=== PATIENT | female | born 1955 | race Caucasian/White ===

== ENCOUNTER 2017-07-31 13:22 | Emergency (ER) | payer OTHER ==
[~2017-07-31] VITALS: Ht 152.4 cm; Wt 54.4 kg
[~2017-07-31 13:22] MED LIST: ASPI81CH; Advil200 M1; GABA300 PO; MECL25 PO; MEDICAL MARIJUANA; MORPHINE; Norco 5-325 Ta1 EACH PO; SOMA; Sleep Aid25 M1 PO
[2017-07-31] MEDS ORDERED: ACET325 PO (13:54)
[2017-09-24] MEDS ORDERED: Diclofenac Sodi50 MG PO (19:36)
== END 2017-07-31 15:03 | disposition home or self-care (01) ==
LOC: ER 13:22
DX: S51.812A Laceration without foreign body of left forearm, initial encounter (principal); Z79.899 Other long term (current) drug therapy; Z23 Encounter for immunization; Z90.49 Acquired absence of other specified parts of digestive tract; Z90.710 Acquired absence of both cervix and uterus; Z87.891 Personal history of nicotine dependence; W26.0XXA Contact with knife, initial encounter
CPT/HCPCS: 12002; 90471; 90714; 99283

== ENCOUNTER 2017-08-11 09:30 | Emergency (ER) | payer OTHER ==
[~2017-08-11] VITALS: Ht 152.4 cm; Wt 52.2 kg
[~2017-08-11 09:30] MED LIST changes: +ACET325 PO
[2017-08-11] MEDS ORDERED: ACET325 PO (09:56)
[2017-08-11] MEDS ORDERED: GABA300 PO (09:57)
[2017-09-24] MEDS ORDERED: Diclofenac Sodi50 MG PO (19:36)
== END 2017-08-11 10:06 | disposition home or self-care (01) ==
LOC: ER 09:30
DX: S51.812D Laceration without foreign body of left forearm, subsequent encounter (principal); W26.8XXA Contact with other sharp object(s), not elsewhere classified, initial encounter
CPT/HCPCS: 99281

== ENCOUNTER 2017-09-15 11:39 | Emergency (ER) | payer OTHER ==
[~2017-09-15] VITALS: Ht 152.4 cm; Wt 54.4 kg
[2017-09-15] MEDS ORDERED: Valium5 MG PO (14:45)
[2017-09-15] MEDS ORDERED: Norco 5-325 Ta1 EACH PO (14:45)
[2017-09-24] MEDS ORDERED: Diclofenac Sodi50 MG PO (19:36)
== END 2017-09-15 14:57 | disposition home or self-care (01) ==
LOC: ER 11:39
DX: M54.2 Cervicalgia (principal); Z79.899 Other long term (current) drug therapy; Z87.891 Personal history of nicotine dependence
CPT/HCPCS: 99283

== ENCOUNTER 2017-09-24 19:28 | Emergency (ER) | END 2017-09-24 21:24 | disposition home or self-care (01) ==

== ENCOUNTER 2017-12-23 08:42 | Day surgery (SDC) | payer OTHER ==
[~2017-12-23 08:42] MED LIST changes: +Diclofenac Sodi50 MG PO; +Valium5 MG PO
== END 2017-12-23 22:49 | disposition home or self-care (01) ==
LOC: RAD 08:42
PROVIDERS: Radiology Diagnostic Radiology
PROC: BR20YZZ Computerized Tomography (CT Scan) of Cervical Spine using Other Contrast (ICD-10-PCS; principal; 2017-12-23 11:00)
DX: M48.02 Spinal stenosis, cervical region (principal); M50.322 Other cervical disc degeneration at C5-C6 level; M43.12 Spondylolisthesis, cervical region; R20.9 Unspecified disturbances of skin sensation; Z87.891 Personal history of nicotine dependence; F32.9 Major depressive disorder, single episode, unspecified; F41.9 Anxiety disorder, unspecified
CPT/HCPCS: 62302; 72126; Q9966

== ENCOUNTER 2018-01-28 10:36 | Emergency (ER) | payer OTHER ==
[~2018-01-28] VITALS: Ht 167.6 cm; Wt 54.4 kg
== END 2018-01-28 12:50 | disposition home or self-care (01) ==
LOC: ER 10:36
DX: S81.811A Laceration without foreign body, right lower leg, initial encounter (principal); Z79.899 Other long term (current) drug therapy; Z87.891 Personal history of nicotine dependence; W30.89XA Contact with other specified agricultural machinery, initial encounter; Y93.01 Activity, walking, marching and hiking
CPT/HCPCS: 12002; 73590; 99283

== ENCOUNTER → 2020-06-08 | Outpatient (CLI) | payer OTHER ==
[2020-06-10 09:50] LABS: Stool Occult Blood Guaiac 1 Neg (Neg)
== END ==
LOC: LAB SHORT 21:30 → LAB 21:30
PROVIDERS: Nurse Practitioner Family
DX: R19.4 Change in bowel habit (principal)
CPT/HCPCS: 82272

== ENCOUNTER → 2021-08-24 | Outpatient (CLI) | payer OTHER ==
[~2021-08-24] MED LIST changes: +ACET500 PO; +ALBU90OI INH; +ASPI81CH PO; +Apple Cider Vi300 MG PO; +BENTYL10 MG/1 ML PO; +Cymbalta20 MG PO; +IBUPROFEN IB200 MG PO; +TIZA4 PO; +TURMERIC500 M2 PO; +VITAMIN D310 MC4 PO; +[UNRECOGNIZED DRUG - REMARK] PO
[2021-08-25 07:11] LABS: BASO (ABSOLUTE) 0.1 x10E3/uL (0.0-0.2); BASOS 1 % (Not Estab.); EOS 1 % (Not Estab.); EOS (ABSOLUTE) 0.1 x10E3/uL (0.0-0.4); HEMATOCRIT 38.5 % (34.0-46.6); HEMOGLOBIN 13.4 g/dL (11.1-15.9); IMMATURE GRANULOCYTES 0 % (Not Estab.); LYMPHS 28 % (Not Estab.); LYMPHS (ABSOLUTE) 2.1 x10E3/uL (0.7-3.1); MCH 30.8 pg (26.6-33.0); MCHC 34.8 g/dL (31.5-35.7); MCV 89 fL (79-97); MONOCYTES 6 % (Not Estab.); MONOCYTES(ABSOLUTE) 0.5 x10E3/uL (0.1-0.9); NEUTROPHILS 64 % (Not Estab.); NEUTROPHILS (ABSOLUTE) 4.9 x10E3/uL (1.4-7.0); PLATELETS 372 x10E3/uL (150-450); RBC 4.35 x10E6/uL (3.77-5.28); RDW 11.6 % (11.7-15.4); WBC 7.6 x10E3/uL (3.4-10.8)
[2021-08-25 08:11] LABS: CALCIUM, SERUM 10.1 mg/dL (8.7-10.3); CREATININE, SERUM 0.83 mg/dL (0.57-1.00); POTASSIUM, SERUM 4.6 mmol/L (3.5-5.2)
== END | disposition home or self-care (01) ==
LOC: LAB SHORT 11:16
PROVIDERS: Surgery
DX: Z01.818 Encounter for other preprocedural examination (principal); R01.1 Cardiac murmur, unspecified
CPT/HCPCS: 36415; 80048; 85025

== ENCOUNTER 2021-08-27 06:01 | Day surgery (SDC) | payer OTHER ==
--- NOTE | 2021-08-27 06:29 | NUR ---
Ambulatory in Day Surgery. History, Chart, Medications and Allergies reviewed before start of procedure. Patient confirms NPO status and agrees with scheduled surgery. Patient States Post-Procedure ride home has been arranged.
--- NOTE | 2021-08-27 09:30 | NUR ---
Discharged via wheelchair to private car for ride home. Dressing to procedure site clean, dry, intact with no visible drainage, swelling, erythema or bruising noted. Discharge instructions reviewed with patient. Patient verbalizes understanding. Copy given to patient to take home. Patient States Post-Procedure ride home has been arranged. hospital.
== END 2021-08-27 09:30 | disposition home or self-care (01) ==
LOC: ORSCMMR 06:01 → ORD 07:30 → ORSCMMR 09:30
PROVIDERS: Surgery
PROC: B543ZZA Ultrasonography of Right Jugular Veins, Guidance (ICD-10-PCS; principal; 2021-08-27 07:30)
PROC: 05HM33Z Insertion of Infusion Device into Right Internal Jugular Vein, Percutaneous Approach (ICD-10-PCS; principal; 2021-08-27 07:30)
DX: C50.812 Malignant neoplasm of overlapping sites of left female breast (principal); Z79.899 Other long term (current) drug therapy; Z79.82 Long term (current) use of aspirin
CPT/HCPCS: 77001; A9270; C1788; J0690; J1100; J1642; J2250; J2405; J2704; J3010; J7120

== ENCOUNTER 2022-02-10 07:59 | Day surgery (SDC) | payer OTHER ==
[~2022-02-10] VITALS: Ht 152.4 cm; Wt 55.2 kg
--- NOTE | 2022-02-10 15:20 | NUR ---
PT ARRIVED TO THE ROOM FROM PACU AT APPROXIMATELY 1305. SHE WAS ALERT AND ORIENTED AT TIME OF ARRIVAL TO THE ROOM. PT RATED PAIN AT 5/10, FENTANYL GIVEN FOR PAIN MANAGEMENT. FAMILY NOTIFIED OF PT'S ARRIVAL TO THE ROOM. WILL CONTINUE TO MONITOR.
--- NOTE | 2022-02-10 16:46 | NUR ---
SHIFT SUMMARY PT IS POD#0 FROM A LEFT MASTECTOMY WITH DR. QUEVEDO. PAIN IS MANAGED WITH NORCO. ABNER DRAINING SEROSANGUINOUS FLUID, DRESSING C/D/I. PT HAS BEEN OOB AND AMBULATES TO THE BATHROOM INDEPENDENTLY. VSS. WILL MONITOR UNTIL REPORT TO JENN RATLIFF.
--- NOTE | 2022-02-11 04:46 | NUR ---
PERSONNEL DIRECTOR SUMMARY NO ACUTE CHANGES THIS SHIFT. PT AAOX4 AND PLEASANT. INDEPENDENT IN ROOM. GAUZE AND DONA WRAP DRESSING ON L BREAST SURGICAL SITE C/D/I. MEDICATED FOR PAIN WITH NORCO 2 TABS WITH GOOD PAIN RELIEF. VSS, WILL CONTINUE TO MONITOR.
--- NOTE | 2022-02-11 07:32 | NUR ---
ABNER DRAIN EMPTIED, UNMEASURED AMOUNT OF APPROXIMATELY 35-40 ML.
[2022-02-11] MEDS ORDERED: Norco 5-325 Ta1 EACH PO (10:21)
--- NOTE | 2022-02-11 11:27 | NUR ---
DISCHARGE PT PROVIDED WITH WRITTEN AND VERBAL DISCHARGE INSTRUCTIONS; SHE AND HER FAMILY REPORTED UNDERSTANDING. DRESSING CHANGE SUPPLIES PROVIDED. PT EDUCATED ABOUT ABNER DRAIN AND PROVIDED WITH OUTPUT RECORD SHEET AND CONTAINER TO MEASURE OUTPUT. PT ESCORTED OUT IN W/C AT 1125.
== END 2022-02-11 11:25 | disposition home or self-care (01) ==
LOC: ORSCMMR 07:59 → NM 09:00 → SURS 12:47 → ORSCMMR 02-11 11:25
PROVIDERS: Surgery
PROC: 0HBU0ZZ Excision of Left Breast, Open Approach (ICD-10-PCS; principal; 2022-02-10 10:00)
PROC: 07B60ZX Excision of Left Axillary Lymphatic, Open Approach, Diagnostic (ICD-10-PCS; principal; 2022-02-10 10:00)
DX: C50.912 Malignant neoplasm of unspecified site of left female breast (principal); D36.0 Benign neoplasm of lymph nodes; Z17.1 Estrogen receptor negative status [ER-]; E78.5 Hyperlipidemia, unspecified; Z87.891 Personal history of nicotine dependence; F41.8 Other specified anxiety disorders; Z79.899 Other long term (current) drug therapy
CPT/HCPCS: 38792; 88307; 88342; A9270; A9520; J0690; J1100; J1650; J2250; J2370; J2405; J2704; J2795; J3010; J7120; Q9968

== ENCOUNTER → 2024-01-02 | Outpatient (CLI) | payer OTHER ==
[2024-01-02 17:47] LABS: BASOPHILS ABSOLUTE AUTO 0.05 K/mm3 (0.00-0.23); BASOPHILS PERCENT AUTO 1 % (0-2); EOSINOPHILS ABSOLUTE AUTO 0.09 K/mm3 (0.00-0.68); EOSINOPHILS PERCENT AUTO 1 % (0-6); Hematocrit 39.1 % (33.0-51.0); Hemoglobin 13.1 g/dL (11.5-16.0); IMMATURE GRAN ABSOLUTE AUTO 0.02 K/mm3 (0.00-0.10); IMMATURE GRAN PERCENT AUTO 0 % (0-1); LYMPHOCYTES ABSOLUTE AUTO 2.31 K/mm3 (0.84-5.20); LYMPHOCYTES PERCENT AUTO 27 % (21-46); MONOCYTES ABSOLUTE AUTO 0.42 K/mm3 (0.16-1.47); MONOCYTES PERCENT AUTO 5 % (4-13); Mean Corpuscular HGB 30.9 pg (26.0-34.0); Mean Corpuscular HGB Conc 33.5 g/dL (31.5-36.5); Mean Corpuscular Volume 92 fL (80-100); Mean Platelet Volume 10.3 fL (9.1-12.4); NEUTROPHILS ABSOLUTE AUTO 5.69 K/mm3 (1.96-9.15); NEUTROPHILS PERCENT AUTO 66 % (41-73); Platelet Count 341 K/mm3 (150-400); RDW Coefficient Variation 11.5 % (11.7-14.2); RDW Standard Deviation 38.9 fL (35.1-46.3); Red Blood Cell Count 4.24 M/mm3 (3.80-5.20); White Blood Cell Count 8.58 K/mm3 (4.00-11.30)
[2024-01-02 18:30] LABS: Albumin, Blood 4.2 g/dL (3.4-5.0); Albumin/Globulin Ratio 1.3 (0.8-1.8); Bilirubin, Total 0.2 mg/dL (0.1-1.0); Bun/Creatinine Ratio 12.3 (12.0-20.0); Creatinine, Blood 0.73 mg/dL (0.40-1.00); Globulin, Blood 3.3 g/dL (2.2-4.0); Potassium, Blood 3.9 mmol/L (3.5-5.5); Total Protein, Blood 7.5 g/dL (6.4-8.2)
== END ==
LOC: LAB 16:20 → LAB SHORT 16:20
PROVIDERS: Nurse Practitioner Family
DX: M25.50 Pain in unspecified joint (principal)
CPT/HCPCS: 80053; 85025; 85651

== ENCOUNTER 2024-09-06 10:08 | Emergency (ER) | payer OTHER ==
[~2024-09-06] VITALS: Ht 152.4 cm; Wt 54.4 kg
[2024-09-06] MEDS ORDERED: MELO7.5 PO (11:04)
[2024-09-06] MEDS ORDERED: ALEN70 PO (11:04)
[2024-09-06] MEDS ORDERED: TIZA4 PO (11:04)
[2024-09-06 11:31] LABS: CORONAVIRUS COVID-19 AG Negative (NEGATIVE); INFLUENZA A AG Negative (NEGATIVE); INFLUENZA B AG Negative (NEGATIVE)
[2024-09-06 11:47] LABS: BASOPHILS ABSOLUTE AUTO 0.03 K/mm3 (0.00-0.23); BASOPHILS PERCENT AUTO 0 % (0-2); EOSINOPHILS PERCENT AUTO 0 % (0-6); Hematocrit 39.4 % (33.0-51.0); Hemoglobin 13.6 g/dL (11.5-16.0); IMMATURE GRAN ABSOLUTE AUTO 0.04 K/mm3 (0.00-0.10); IMMATURE GRAN PERCENT AUTO 0 % (0-1); LYMPHOCYTES ABSOLUTE AUTO 1.86 K/mm3 (0.84-5.20); LYMPHOCYTES PERCENT AUTO 18 % (21-46); MONOCYTES ABSOLUTE AUTO 0.66 K/mm3 (0.16-1.47); MONOCYTES PERCENT AUTO 6 % (4-13); Mean Corpuscular HGB 30.8 pg (26.0-34.0); Mean Corpuscular HGB Conc 34.5 g/dL (31.5-36.5); Mean Corpuscular Volume 89 fL (80-100); Mean Platelet Volume 9.4 fL (9.1-12.4); NEUTROPHILS ABSOLUTE AUTO 7.94 K/mm3 (1.96-9.15); NEUTROPHILS PERCENT AUTO 75 % (41-73); Platelet Count 376 K/mm3 (150-400); RDW Coefficient Variation 11.2 % (11.7-14.2); RDW Standard Deviation 36.3 fL (35.1-46.3); Red Blood Cell Count 4.41 M/mm3 (3.80-5.20); White Blood Cell Count 10.53 K/mm3 (4.00-11.30)
[2024-09-06 11:47] LABS: Albumin, Blood 4.6 g/dL (3.4-5.0); Albumin/Globulin Ratio 1.3 (0.8-1.8); Bilirubin, Total 0.8 mg/dL (0.1-1.0); Bun/Creatinine Ratio 22.2 (12.0-20.0); Creatinine, Blood 0.68 mg/dL (0.40-1.00); Globulin, Blood 3.6 g/dL (2.2-4.0); Potassium, Blood 4.1 mmol/L (3.5-5.5); Total Protein, Blood 8.2 g/dL (6.4-8.2)
[2024-09-06 11:50] VITALS: BP 150/88
[2024-09-06] MEDS ORDERED: PRED20 PO (12:48)
[2024-09-06] MEDS ORDERED: ALBU90OI INH (12:48)
[2024-09-06] MEDS ORDERED: BENZ100A PO (12:48)
== END 2024-09-06 13:03 | disposition home or self-care (01) ==
LOC: ER 10:08
PROVIDERS: Student in an Organized Health Care Education/Training Program
DX: J20.9 Acute bronchitis, unspecified (principal); Z87.891 Personal history of nicotine dependence; Z79.899 Other long term (current) drug therapy
CPT/HCPCS: 36415; 71045; 80053; 84484; 85025; 87428-QW; 93005; 93010; 99285-25

== ENCOUNTER → 2025-03-20 | Outpatient (CLI) | payer OTHER ==
[~2025-03-20] MED LIST changes: +ALEN70 PO; +BENZ100A PO; +MELO7.5 PO; +PRED20 PO
[2025-03-20 18:55] LABS: BASOPHILS ABSOLUTE AUTO 0.05 K/mm3 (0.00-0.23); BASOPHILS PERCENT AUTO 1 % (0-2); EOSINOPHILS ABSOLUTE AUTO 0.04 K/mm3 (0.00-0.68); EOSINOPHILS PERCENT AUTO 1 % (0-6); Hematocrit 36.1 % (33.0-51.0); Hemoglobin 12.3 g/dL (11.5-16.0); IMMATURE GRAN ABSOLUTE AUTO 0.02 K/mm3 (0.00-0.10); IMMATURE GRAN PERCENT AUTO 0 % (0-1); LYMPHOCYTES ABSOLUTE AUTO 1.62 K/mm3 (0.84-5.20); LYMPHOCYTES PERCENT AUTO 18 % (21-46); MONOCYTES ABSOLUTE AUTO 0.46 K/mm3 (0.16-1.47); MONOCYTES PERCENT AUTO 5 % (4-13); Mean Corpuscular HGB Conc 34.1 g/dL (31.5-36.5); Mean Corpuscular Volume 92 fL (80-100); NEUTROPHILS ABSOLUTE AUTO 6.66 K/mm3 (1.96-9.15); NEUTROPHILS PERCENT AUTO 75 % (41-73); NRBC ABSOLUTE 0.00 K/mm3 (0.00-0.02); NRBC Auto 0.0 /100 WBC (0.0-0.2); Platelet Count 405 K/mm3 (150-400); RDW Coefficient Variation 11.4 % (11.7-14.2); RDW Standard Deviation 39.2 fL (35.1-46.3)
[2025-03-20 19:33] LABS: Alanine Aminotransfer (ALT/SGP 21.0 U/L (12-78); Albumin, Blood 4.3 g/dL (3.4-5.0); Albumin/Globulin Ratio 1.5 (0.8-1.8); Anion Gap 8.0 mmol/L (3-11); Aspartate Aminotrans (AST/SGOT 16.0 U/L (12-37); Bilirubin, Total 0.5 mg/dL (0.1-1.0); Blood Urea Nitrogen 9.0 mg/dL (8-24); CO2, Blood 27.0 mmol/L (21-32); Calcium, Blood 8.5 mg/dL (8.5-10.1); Chloride, Blood 95.0 mmol/L (98-108); Creatinine, Blood 0.73 mg/dL (0.40-1.00); Globulin, Blood 2.9 g/dL (2.2-4.0); Glucose, Blood 106.0 mg/dL (70-99); Magnesium, Blood 2.2 mg/dL (1.6-2.4); Potassium, Blood 4.1 mmol/L (3.5-5.5); Sodium, Blood 126.0 mmol/L (136-145); Total Protein, Blood 7.2 g/dL (6.4-8.2)
== END ==
LOC: LAB SHORT 10:43 → LAB 10:43
PROVIDERS: Nurse Practitioner Family
DX: R25.2 Cramp and spasm (principal)
CPT/HCPCS: 80053; 83735; 85025